=== PATIENT | male | born 1970 | race African-American/Black ===

== ENCOUNTER 2020-03-10 21:00 | Emergency (ER) | payer MEDICARE, MEDICAID ==
[~2020-03-10] VITALS: Ht 167.6 cm; Wt 63.6 kg
[2020-03-10] MEDS ORDERED: PREDNISONE 20MG TABLET PO STA (21:06)
[2020-03-10] MEDS ORDERED: ALBUTEROL (0.083%) 2.5MG/3ML NEB HHN ONE (21:15)
[2020-03-10] MEDS ORDERED: MAGNESIUM 2 G PREMIX 50 ML IV ONE (21:15)
[2020-03-10 22:00] LABS: BASOPHILS % 0.8 % (0.0-2.0); EOSINOPHILS % 4.5 % (0.0-5.0); HEMATOCRIT. 50.1 % (42.0-52.0); HEMOGLOBIN. 16.6 g/dL (14.0-18.0); LYMPHOCYTES % 33.3 % (20.0-50.0); MEAN CORPUSCULAR HEMOGLOBIN 28.4 pg (28.0-32.0); MEAN CORPUSCULAR VOLUME 85.7 fL (80.0-94.0); MEAN PLATELET VOLUME 7.3 fl (7.4-10.4); MONOCYTES % 12.2 % (2.0-8.0); NEUTROPHILS % 49.2 % (40.0-76.0); PLATELET 207 x1000/uL (130-400); RED BLOOD CELL COUNT 5.85 mill/uL (4.7-6.1); RED CELL DISTRIBUTION WIDTH 13.8 % (11.6-14.6)
[2020-03-10 22:09] LABS: CHLORIDE 109 mEq/L (98-107)
[2020-03-10 23:36] VITALS: BP 128/94
== END 2020-03-10 23:40 | disposition home or self-care (01) ==
LOC: ER 21:00
DX: J45.901 Unspecified asthma with (acute) exacerbation (principal); R03.0 Elevated blood-pressure reading, without diagnosis of hypertension
CPT/HCPCS: 36415; 71045; 80053; 84484; 85025; 85379; 93005; 94640; 96365; 99285; J3475; J7512